=== PATIENT | female | born 1945 | race Caucasian/White ===

== ENCOUNTER → 2016-08-26 | Outpatient (CLI) | payer OTHER, MEDICARE | LOC: FIMAGING 10:51 | DX: Z12.31 Encounter for screening mammogram for malignant neoplasm of breast (principal); Z85.3 Personal history of malignant neoplasm of breast | CPT/HCPCS: G0202 ==

== ENCOUNTER → 2016-08-29 | Outpatient (CLI) | payer OTHER, MEDICARE | LOC: BMCIMAGING 13:49 | PROVIDERS: ATTEND Internal Medicine | DX: Z13.89 Encounter for screening for other disorder (principal); Z78.0 Asymptomatic menopausal state ==

== ENCOUNTER → 2017-08-01 | Outpatient (CLI) | payer OTHER, MEDICARE | LOC: BHFA 11:30 | PROVIDERS: ATTEND Internal Medicine Cardiovascular Disease | DX: I48.91 Unspecified atrial fibrillation (principal) ==

== ENCOUNTER → 2017-08-02 | Outpatient (CLI) | payer OTHER, MEDICARE | LOC: BHFA 09:00 | PROVIDERS: ATTEND Internal Medicine Interventional Cardiology | DX: I48.91 Unspecified atrial fibrillation (principal) ==

== ENCOUNTER → 2017-08-27 | Outpatient (CLI) | payer OTHER, MEDICARE | LOC: FIMAGING 10:05 | PROVIDERS: ATTEND Physician Assistant | DX: Z12.31 Encounter for screening mammogram for malignant neoplasm of breast (principal); Z85.3 Personal history of malignant neoplasm of breast ==

== ENCOUNTER → 2017-09-14 | Outpatient (CLI) | payer OTHER, MEDICARE | LOC: BHFA 13:15 | PROVIDERS: ATTEND Internal Medicine Interventional Cardiology | DX: I48.0 Paroxysmal atrial fibrillation (principal); I10 Essential (primary) hypertension ==

== ENCOUNTER → 2018-08-08 | Outpatient (CLI) | payer OTHER, MEDICARE | LOC: BMCIMAGING 11:16 | PROVIDERS: ATTEND Internal Medicine | DX: M16.12 Unilateral primary osteoarthritis, left hip (principal); Z78.0 Asymptomatic menopausal state ==

== ENCOUNTER → 2018-08-29 | Outpatient (CLI) | payer OTHER, MEDICARE | LOC: FIMAGING 10:18 | PROVIDERS: ATTEND Surgery | DX: Z12.31 Encounter for screening mammogram for malignant neoplasm of breast (principal); Z85.3 Personal history of malignant neoplasm of breast ==

== ENCOUNTER → 2018-08-30 | Outpatient (CLI) | payer OTHER, MEDICARE | LOC: FIMAGING 09:11 | PROVIDERS: ATTEND Internal Medicine | DX: Z13.820 Encounter for screening for osteoporosis (principal); Z78.0 Asymptomatic menopausal state ==